=== PATIENT | female | born 1955 | race Caucasian/White ===

== ENCOUNTER 2023-09-06 21:34 | Emergency (ER) | payer OTHER, MEDICAID ==
[~2023-09-06] VITALS: Ht 167.6 cm; Wt 90.9 kg
[2023-09-07 02:47] VITALS: BP 146/110; PULSE 107; RESP 16; TEMP 97.8; O2SAT 94
== END 2023-09-07 02:47 | disposition home or self-care (01) ==
LOC: EDBD 21:34 → ER 21:34
DX: S63.254A Unspecified dislocation of right ring finger, initial encounter (principal); S09.8XXA Other specified injuries of head, initial encounter; I10 Essential (primary) hypertension; E11.9 Type 2 diabetes mellitus without complications; Z88.0 Allergy status to penicillin; W01.0XXA Fall on same level from slipping, tripping and stumbling without subsequent striking against object, initial encounter; Y93.89 Activity, other specified; Y92.098 Other place in other non-institutional residence as the place of occurrence of the external cause; Y99.8 Other external cause status
CPT/HCPCS: 26770; 70450; 73130